=== PATIENT | male | born 1955 | race Caucasian/White ===

== ENCOUNTER → 2016-12-17 | Outpatient (CLI) | payer BC ==
[2016-12-17 10:03] LABS: BLOOD UREA NITROGEN 14 mg/dl (7-18); BUN/CREATININE RATIO 12.8 (10-20)
== END | disposition home or self-care (01) ==
LOC: C.LAB 09:06
PROVIDERS: ATTEND Urology
DX: R97.20 Elevated prostate specific antigen [PSA] (principal)

== ENCOUNTER → 2017-01-14 | Outpatient (CLI) | payer BC | END | disposition home or self-care (01) | LOC: C.LAB 08:53 | PROVIDERS: ATTEND Urology | DX: R97.20 Elevated prostate specific antigen [PSA] (principal) ==

== ENCOUNTER 2017-05-14 19:55 | Emergency (ER) | payer BC ==
[~2017-05-14] VITALS: Ht 172.7 cm; Wt 98.2 kg
[~2017-05-14 19:55] MED LIST changes: -CIPROFLOXACIN / D5W 400 MG IV SCH; -FENTANYL CITRATE INJ 50 MCG/1 ML 2 ML VIAL ONE; -LACTATED RINGER'S 1000ML 1,000 ML IV SCH; -MIDAZOLAM HCL 1 MG/ML 2ML VIAL ONE; -OXYCODONE/ACETAMINOPHEN 5-325 TAB PO PRN; -PHENAZOPYRIDINE HCL 200 MG TAB PO ONE; -PHENAZOPYRIDINE HCL 200 MG TAB PO PRN
[2017-05-14 20:41] VITALS: TEMP 36.9; Ht 172.7 cm; Wt 98.2 kg
[2017-05-14] MEDS ORDERED: KETOROLAC TROMETHAMINE 60 MG/2 ML VIAL IM STA (21:38)
--- NOTE | 2017-05-14 22:41 | EMERGENCY ROOM VISIT NOTE ---
History Report prepared by [place]: Emeka Canales Under the Supervision of: Dr. Houston Olsen D.O. First contact with patient: 21:24 Chief Complaint: CATHETER REPLACEMENT Stated Complaint: CATHERTER NOT WORKING History of Present Illness The patient is a 61 year old male who presents to the Emergency Room with complaints of constant urinary symptoms occurring today. The patient states that he had a UroLift procedure done today. He notes that he also had a catheter placed because he was not able to urinate following the procedure. He reports that once the catheter was placed, he emptied his bladder quickly. The patient states that since that initial episode, he has not been able to urinate into the catheter. He also complains of bladder spasms since the procedure today. Source of History: patient Onset: today Position: other (lopez catheter) Quality: other (unability to urinate) Timing: constant Note: He also complains of bladder spasms. Review of Systems See HPI for pertinent positives & negatives. A total of 10 systems reviewed and were otherwise negative. Past Medical & Surgical Surgical Problems: (1) Lopez catheter in place Family History No pertinent family history stated. Social History Smoking Status: Never Smoker Marital Status: Housing Status: lives with family Occupation Status: employed Current/Historical Medications Scheduled Ciprofloxacin Hcl (Cipro), 500 MG PO BID Silodosin (Rapaflo), 1 CAP PO QAM Scheduled PRN Lorazepam (Ativan), 0.5 MG PO Q6H PRN for Anxiety/Agitation Oxycodone/Acetaminophen 5MG/325MG (Percocet 5MG/325MG), 1 TABLET PO Q4H PRN for Pain Phenazopyridine Hcl (Pyridium), 200 MG PO TID PRN for Bladder pain Allergies Coded Allergies: Penicillins (Verified Allergy, Unknown, HIVES, 05/14/17) Physical Exam Vital Signs Date Time Temp Pulse Resp B/P (MAP) Pulse Ox O2 Delivery O2 Flow Rate FiO2 05/14/17 20:41 36.9 115 18 181/84 93 Room Air Physical Exam CONSTITUTIONAL/VITAL SIGNS: Reviewed / noted above. GENERAL: Non-toxic in appearance. INTEGUMENTARY: Warm, dry, and [place]. HEAD: Normocephalic. EYES: without scleral icterus or trauma. ENT/OROPHARYNX: clear and moist. LYMPHADENOPATHY/NECK: Is supple without lymphadenopathy or meningismus. RESPIRATORY: Lungs clear and equal. CARDIOVASCULAR: Regular rate and rhythm. GI/ABDOMEN: Soft and nontender. No organomegaly or pulsatile mass. No rebound or guarding. Normal bowel sounds. Lopez catheter in place with bloody discharge. EXTREMITIES: Warm and well perfused. BACK: No CVA tenderness. NEUROLOGICAL: Intact without focal deficits. PSYCHIATRIC: normal affect. MUSCULOSKELETAL: Normally developed with good muscle tone. Medical Decision & Procedures Medications Administered Medications (Trade) Dose Ordered Sig/Rahat Route Start Time Stop Time Status Last Admin Dose Admin Ketorolac Tromethamine (Toradol Inj) 60 mg NOW STAT IM 05/14/17 21:38 05/14/17 21:39 DC 05/14/17 21:38 60 MG ED Course 2131: Previous medical records were reviewed. The patient was evaluated in room C8. A complete history and physical examination was performed. 2136: The bladder scan performed by the nurses showed that the patient had 130cc of urine. 2137: Toradol Inj 60mg IM 2235: On reevaluation, the patient is stable. I discussed the results and findings with the patient. He verbalized agreement of the treatment plan. The patient was discharged home. Medical Decision Differential diagnoses include: Blocked Lopez catheter, infection, Medication Reconcilliation Current Medication List: was personally reviewed by me Blood Pressure Screening Patient's blood pressure: Elevated blood pressure Blood pressure disposition: Elevated BP felt to be situational Impression Primary Impression: Complication of catheter Scribe Attestation The scribe's documentation has been prepared under my direction and personally reviewed by me in its entirety. I confirm that the note above accurately reflects all work, treatment, procedures, and medical decision making performed by me. Departure Information Dispostion Home / Self-Care Referrals Baudilio Rivera D.O. (PCP) Forms HOME CARE DOCUMENTATION FORM, IMPORTANT VISIT INFORMATION Patient Instructions My [facility] [address] Additional Instructions Follow-up with your doctor as scheduled. Irrigate tube as instructed with the saline and syringe provided if necessary. Return for any concerns.
[2017-05-14 22:44] VITALS: BP 127/70; PULSE 78; O2SAT 98
== END 2017-05-14 22:45 | disposition home or self-care (01) ==
LOC: C.EDB 20:04 → C.EDC 22:45
DX: T83.091A Other mechanical complication of indwelling urethral catheter, initial encounter (principal); Y84.6 Urinary catheterization as the cause of abnormal reaction of the patient, or of later complication, without mention of misadventure at the time of the procedure; Z79.899 Other long term (current) drug therapy; Z79.2 Long term (current) use of antibiotics

== ENCOUNTER → 2017-05-14 | Day surgery (SDC) | payer BC ==
[2017-04-28 08:13] VITALS: BMI 40.0
--- NOTE | 2017-04-28 08:46 | PAT Medication Instructions ---
Service Date Apr 28, 2017. Current Home Medication List Silodosin (Rapaflo), 1 CAP PO QAM Medication Instructions For Your Scheduled Surgery - Take the following medications the morning of surgery with a sip of water: Silodosin (Rapaflo), 1 CAP PO QAM If you have any questions please call us at [phone] or [phone] or [phone]
--- NOTE | 2017-04-28 09:17 | DIAGNOSTIC IMAGING REPORT ---
CHEST 2 VIEWS ROUTINE CLINICAL HISTORY: 61 years-old Male presenting with preoperative assessment. TECHNIQUE: PA and lateral views of the chest were obtained. COMPARISON: None. FINDINGS: Cardiomediastinal silhouette normal. Lungs and pleural spaces clear. Degenerative changes of the thoracic spine. Upper abdomen normal. IMPRESSION: 1. No acute cardiopulmonary disease. Electronically signed by: Frederick Randle M.D. 04/28/2017 9:16 AM Dictated Date/Time: 04/28/2017 9:15 AM
[2017-04-28 09:43] LABS: BASO % 0.2 %; BASO ABS # 0.01 K/uL (0-0.2); EOS % 1.4 %; EOS ABS # 0.08 K/uL (0-0.5); HEMATOCRIT 44.7 % (42-52); HEMOGLOBIN 15.6 g/dL (14.0-18.0); IG# 0.02 K/uL (0.00-0.02); LYMPH % 21.9 %; LYMPH ABS # 1.24 K/uL (1.2-3.4); MEAN CELL VOLUME 90.9 fL (80-100); MEAN CORPUSCULAR HEMOGLOBIN 31.7 pg (25-34); MEAN CORPUSCULAR HGB CONC 34.9 g/dl (32-36); MEAN PLATELET VOLUME 9.9 fL (7.4-10.4); MONO % 5.5 %; MONO ABS # 0.31 K/uL (0.11-0.59); NEUT % 70.6 %; NEUT ABS # 4.01 K/uL (1.4-6.5); PLATELET COUNT 163 K/uL (130-400); RED CELL DISTRIBUTION WIDTH CV 12.4 % (11.5-14.5); RED CELL DISTRIBUTION WIDTH SD 40.7 fL (36.4-46.3); WHITE BLOOD COUNT 5.67 K/uL (4.8-10.8)
[2017-04-28 09:57] LABS: CALCIUM 8.9 mg/dl (8.5-10.1); CREATININE 1.04 mg/dl (0.60-1.40); POTASSIUM 4.1 mmol/L (3.5-5.1)
[~2017-05-14] VITALS: Ht 172.7 cm; Wt 117.0 kg
[~2017-05-14] MED LIST: CIPR-255 PO; CIPROFLOXACIN / D5W 400 MG IV SCH; FENTANYL CITRATE INJ 50 MCG/1 ML 2 ML VIAL ONE; LACTATED RINGER'S 1000ML 1,000 ML IV SCH; LORA-741 PO; MIDAZOLAM HCL 1 MG/ML 2ML VIAL ONE; OXYC-57 PO; OXYCODONE/ACETAMINOPHEN 5-325 TAB PO PRN; PHEN-775 PO; PHENAZOPYRIDINE HCL 200 MG TAB PO ONE; PHENAZOPYRIDINE HCL 200 MG TAB PO PRN; SILO8CAP PO
[2017-05-14 10:20] VITALS: BP 168/72; PULSE 87; TEMP 36.9; O2SAT 98; Ht 172.7 cm; Wt 117.0 kg
--- NOTE | 2017-05-14 11:23 | History & Physical Bridge Note ---
H&P Re-Evaluation Bridge Note: I have examined the patient, reviewed the History & Physical and in the interval since the performance of the History & Physical I have noted the following changes of clinical significance: No changes noted
--- NOTE | 2017-05-14 12:46 | [facility] Post Operative Brief Note ---
Immediate Operative Summary Operative Date May 14, 2017. Pre-Operative Diagnosis Cystoscopy, Urolift Post-Operative Diagnosis Cystoscopy, Urolift Procedure(s) Performed Cystoscopy, Urolift Surgeon Dr. Kevin Eduardo Cooking Casing And Drying Supervisor Surgeon(s) None Estimated Blood Loss 20 cc Findings Consistent with Post-Op Diagnosis Specimens None Per Surgeon Drains None Anesthesia Type MAC Complication(s) none Disposition Accompanied Pt To Recover: no Disposition: Recovery Room / PACU
--- NOTE | 2017-05-14 12:47 | Discharge Instructions ---
Discharge Instructions Date of Service May 14, 2017. Admission Reason for Admission: Benign Prostatic Hypertrophy Discharge Discharge Diagnosis / Problem: BPH s/p Urolift Discharge Goals Goal(s): Improve function, Improve disease control, Therapeutic intervention Activity Recommendations Activity Limitations: as noted below Lifting Limitations: no more than 25 pounds, gradually increase as tolerated Exercise/Sports Limitations: rest today, gradually increase as tolerated May Resume Sexual Activity: after two weeks Shower/Bathe: no limitations Driving or Machine Use: resume 1 day after discharge . Instructions / Follow-Up Instructions / Follow-Up As scheduled in office for follow-up Current Hospital Diet Patient's current hospital diet: Discharge Diet Recommended Diet: Regular Diet (good fluid intake) Procedures Procedures Performed: Cystoscopy, Urolift Pending Studies Studies pending at discharge: no Medical Emergencies . Who to Call and When: Medical Emergencies: If at any time you feel your situation is an emergency, please call 911 immediately. . Non-Emergent Contact Non-Emergency issues call your: Urologist Call Non-Emergent contact if: you have a fever, temperature is above 101, your pain is not controlled, your pain is worsening, your pain is unusual for you, your pain is concerning you, you have any medication questions . . "Provider Documentation" section prepared by Kevin Eduardo. . VTE Core Measure Inpt VTE Proph given/why not?: SCD's [place] Drug Monitoring Program Search Results: patient reviewed within database, no issues identified
[2017-05-14 12:55] VITALS: BP 135/63; PULSE 87; TEMP 36.6; O2SAT 100
--- NOTE | 2017-05-14 13:02 | Anesthesiology Progress Note ---
Anesthesia Post Op Note Date & Time May 14, 2017 at 13:01 Vital Signs Pain Intensity: 0 Vital Signs Past 12 Hours Date Time Temp Pulse Resp B/P (MAP) Pulse Ox O2 Delivery O2 Flow Rate FiO2 05/14/17 10:20 36.9 87 18 168/72 (104) 98 Room Air Notes Mental Status: alert / awake / arousable, participated in evaluation Pt Amnestic to Procedure: Yes Nausea / Vomiting: adequately controlled Pain: adequately controlled Airway Patency, RR, SpO2: stable & adequate BP & HR: stable & adequate Hydration State: stable & adequate Anesthetic Complications: no major complications apparent
[2017-05-14 13:15] VITALS: BP 151/80; PULSE 73; O2SAT 100
--- NOTE | 2017-05-14 13:16 | [facility] Operative Report ---
Operative Report Operative Date May 14, 2017. Pre-Operative Diagnosis BPH, voiding symptoms Post-Operative Diagnosis Same Procedure(s) Performed Cystoscopy, Urolift Surgeon Dr. Kevin Eduardo House Repairer Surgeon(s) None Estimated Blood Loss 20 cc Findings Open fossa after placement of 6 Urolift tacks Specimens None Per Surgeon Drains None Anesthesia Type MAC Complication(s) none Disposition no Recovery Room / PACU Indications Patient is a 61-year-old male with a history of persistent and bothersome voiding symptoms who is here today for Urolift implantation to manage his disease. Please see H&P for further details. Intravenous ciprofloxacin provided for antibiotic coverage and SCDs used for DVT prophylaxis. Description of Procedure Patient was properly identified and brought into the operative suite after identification for proper consent in the chart. Monitored anesthesia care with sedation was initiated and patient was prepped and draped in standard fashion for this procedure. Full timeout procedure was followed. Rigid Urolift cystoscope was passed into the bladder under direct visualization the bladder was surveyed demonstrating mild to moderate trabeculation, obstructive, inflamed lateral lobes of the prostate as previously noted and an elevated bladder neck. No intravesical tumor, papillary lesions or stones were noted. Bladder neck Urolift tacks were placed on either side then followed by 2 Urolift tacks at the level of the apex of the prostate using the verumontanum as a landmark. After this was complete some persistent redundancy and obstruction at the level of the mid prostate was felt to be present so 2 additional Urolift tacks were used between the previously placed for to complete an anterior channel. After placement of all 6 tacks patient's prostatic urethra was felt to be well unobstructed. Bladder was drained and cystoscope was removed. Anesthesia was reversed and patient was transfer to the recovery room in stable condition. Follow-up care: Patient will be discharged home after a trial void with a prescription for ciprofloxacin, Percocet and Pyridium. Outpatient follow-up appointment is confirmed. Patient instructed to contact our service should he note any fevers, chills, nausea, vomiting or other difficulties in the postoperative period. I attest to the content of the Intraoperative Record and any orders documented therein. Any exceptions are noted below.
[2017-05-14 13:40] VITALS: BP 148/80; PULSE 73; TEMP 36.4; O2SAT 98
== END | disposition home or self-care (01) ==
LOC: C.ACU 10:03
PROVIDERS: ATTEND Urology
DX: N40.1 Benign prostatic hyperplasia with lower urinary tract symptoms (principal); R39.198 Other difficulties with micturition; R35.1 Nocturia; G47.33 Obstructive sleep apnea (adult) (pediatric); Z99.89 Dependence on other enabling machines and devices; Z88.0 Allergy status to penicillin; Z87.891 Personal history of nicotine dependence; Z82.49 Family history of ischemic heart disease and other diseases of the circulatory system